=== PATIENT | male | born 1955 | race Caucasian/White ===

== ENCOUNTER 2018-07-02 07:00 | Day surgery (SDC) | payer BC ==
[~2018-07-02 07:00] MED LIST: Midazolam 1 MG/ML 2 ML SDV ONE; fentaNYL 100 MCG/2 ML SDV ONE
[2018-07-02] MEDS ORDERED: Midazolam 1 MG/ML 2 ML SDV IV ONE (07:01)
[2018-07-02] MEDS ORDERED: fentaNYL 100 MCG/2 ML SDV IV ONE (07:01)
[2018-07-02] MEDS: Dextrose 5%-0.45% NaCl 1,000 ML IV SCH (07:29)
[2018-07-02] MEDS: fentaNYL 100 MCG/2 ML SDV IV ONE ×2 (07:49→07:50)
[2018-07-02] MEDS: Midazolam 1 MG/ML 2 ML SDV IV ONE ×5 (07:50→07:57)
[2018-07-02] MEDS ORDERED: Sodium Chloride 0.9% 10 ML Syringe FLUSH PRN (08:00)
--- NOTE | 2018-07-02 10:55 | OR ---
DATE: 07/02/2018 PROCEDURE PERFORMED: Total colonoscopy, narrowband imaging including magnification views, and cold snare polypectomy. INSTRUMENT USED: [id number]-[id number] Olympus video colonoscope. PREMEDICATIONS: Fentanyl 100 mcg intravenous, Versed 3 mg intravenous. Nasal O2 cannula. The procedure was done under pulse oximetry, BP recording, and phototypesetting equipment monitor. INDICATION: The patient with positive FIT. Colonoscopic examination is done for detection of any polypoid lesions and removal, endoscopic hemostasis therapy if needed. DESCRIPTION OF PROCEDURE: Initial rectal exam was unremarkable. Rigid anoscopy was normal. The colonoscope was passed with ease up to the ileocecal area. Photographs were taken of the normal-appearing cecum, identified by landmarks of appendiceal orifice and double-bulged ileocecal folds. No bleeding was noted from any of the visualized areas at the commencement of the examination. There was some amount of bilious bubbly material that had to be aspirated. Bowel preparation was adequate, [place] scale 2 in all the areas noted. No stricture. No vascular ectasia. No large isolated ulcerations seen. No evidence of diffuse inflammatory bowel disease in the form of friability, contact bleeding, or ulcerations. Probing the proximal sides of folds and flexures using adequate distention and clearing up the stool material, withdrawal of the scope was made. In the distal transverse colon and proximal sigmoid colon, diminutive benign- appearing polyps were noted. NBI including magnification views were obtained. Photographs were taken, cold snare polypectomies were done, the tissues were retrieved and sent for histopathology. No bleeding was noted from any of the visualized areas at the completion of the examination. IMPRESSION: Multiple colonic polyps. The patient tolerated the procedure well. [facility] /[id number]
== END 2018-07-02 10:00 | disposition home or self-care (01) ==
LOC: DL.ENDO 07:00
PROVIDERS: ATTEND Internal Medicine Gastroenterology
DX: D12.3 Benign neoplasm of transverse colon (principal); K51.40 Inflammatory polyps of colon without complications; I48.2 Chronic atrial fibrillation; F41.1 Generalized anxiety disorder; F32.9 Major depressive disorder, single episode, unspecified
CPT/HCPCS: 45385; J2250; J3010; J7042

== ENCOUNTER 2023-06-23 05:23 | Day surgery (SDC) | payer MEDICARE, BC ==
[2023-06-23] MEDS ORDERED: fentaNYL 100 MCG/2 ML SDV IV ONE (05:24)
[2023-06-23] MEDS ORDERED: Midazolam 1 MG/ML 2 ML SDV IV ONE (05:24)
[2023-06-23] MEDS: Dextrose 5%-0.45% NaCl 1,000 ML IV SCH (05:52)
[2023-06-23] MEDS ORDERED: fentaNYL 100 MCG/2 ML SDV ONE ×2 (06:08→06:12)
[2023-06-23] MEDS ORDERED: Midazolam 1 MG/ML 2 ML SDV ONE ×2 (06:08→06:12)
[2023-06-23] MEDS: fentaNYL 100 MCG/2 ML SDV IV ONE ×2 (06:27→06:28)
[2023-06-23] MEDS: Midazolam 1 MG/ML 2 ML SDV IV ONE ×4 (06:28→06:37)
== END 2023-06-23 08:06 | disposition home or self-care (01) ==
LOC: DL.ENDO 05:23
PROVIDERS: ATTEND Internal Medicine Gastroenterology
DX: D12.2 Benign neoplasm of ascending colon (principal); F41.9 Anxiety disorder, unspecified; I48.20 Chronic atrial fibrillation, unspecified; F32.A Depression, unspecified; E78.5 Hyperlipidemia, unspecified; C61 Malignant neoplasm of prostate; E11.9 Type 2 diabetes mellitus without complications; Z88.8 Allergy status to other drugs, medicaments and biological substances; Z98.890 Other specified postprocedural states
CPT/HCPCS: 88305; J2250; J3010; J7042

== ENCOUNTER 2024-10-05 12:18 | Emergency (ER) | payer MEDICARE, BC ==
[2024-10-05 12:59] LABS: BASOPHILS PERCENT AUTO 0.5 % (0.0-1.0); EOSINOPHILS PERCENT AUTO 3.1 % (1.0-3.0); LYMPHOCYTES PERCENT AUTO 31.0 % (20.5-50.1); MONOCYTES PERCENT AUTO 7.1 % (2-8); NEUTROPHILS PERCENT AUTO 58.3 % (42.2-75.2); PLATELET COUNT,PLT 190 10^3/uL (150-450); RED BLOOD CELL COUNT 4.04 10^6/uL (4.6-6.2); WHITE BLOOD CELL COUNT,WBC 6.1 10^3/uL (5.0-10.0)
[2024-10-05 13:12] LABS: BLOOD UREA NITROGEN,BUN 19.0 mg/dL (7-18); CARBON DIOXIDE,CO2 26.0 mmol/L (21-32); CHLORIDE,CL 108.0 mmol/L (98-107); CREATININE 0.95 mg/dL (0.70-1.30); EST CRCL DRUG DOSING (CG) 71.51 mL/min; GLUCOSE RANDOM 118.0 mg/dL (70-99); POTASSIUM,K 4.4 mmol/L (3.5-5.1); SODIUM,NA 144.0 mmol/L (136-145)
[2024-10-05 13:13] LABS: ESTIMATED GFR 88.0 mL/min (>=60); INR 1.6 (0.9-1.2)
== END 2024-10-05 14:49 | disposition home or self-care (01) ==
LOC: DL.ED 12:18
DX: R04.0 Epistaxis (principal); I48.91 Unspecified atrial fibrillation; I25.2 Old myocardial infarction; M19.90 Unspecified osteoarthritis, unspecified site; Z88.8 Allergy status to other drugs, medicaments and biological substances; Z79.01 Long term (current) use of anticoagulants; Z79.82 Long term (current) use of aspirin; Z79.84 Long term (current) use of oral hypoglycemic drugs; Z79.899 Other long term (current) drug therapy
CPT/HCPCS: 30901; 36415; 80048; 85025; 85610; 99283; A9270